=== PATIENT | female | born 1935 | race Asian ===

== ENCOUNTER 2023-03-31 23:46 | Inpatient (IN) | payer MEDICARE, OTHER ==
[~2023-03-31] VITALS: Ht 167.6 cm; Wt 69.1 kg
[2023-04-01] VITALS (8 sets, daily range): BP systolic 131–186; BP diastolic 60–75; TEMP 97.6–98.4; O2SAT 94–100
[2023-04-01] MEDS ORDERED: methylPREDNISolone SOD SUCC 125 MG/2ML VIAL IV ONE
[2023-04-01] MEDS ORDERED: ALBUTEROL FS 2.5 MG/0.5 ML VIAL.NEB NEB ONE
[2023-04-01] MEDS ORDERED: ALBUTEROL FS 2.5 MG/0.5 ML VIAL.NEB ONE (00:11)
[2023-04-01] MEDS ORDERED: methylPREDNISolone SOD SUCC 125 MG/2ML VIAL ONE (00:25)
[2023-04-01 00:34] LABS: BASOPHILS % (AUTO) 0.5 % (0.0-2.0); EOSINOPHILS # (AUTO) 0.2 K/uL (0.0-0.7); EOSINOPHILS % (AUTO) 2.4 % (0.0-6.0); HEMATOCRIT 34 % (33-45); LYMPHOCYTES # (AUTO) 1.5 K/uL (0.8-4.8); LYMPHOCYTES % (AUTO) 23.9 % (20.0-44.0); MEAN CORPUSCULAR HEMOGLOBIN 30 PG (26.0-33.0); MEAN CORPUSCULAR HGB CONC 33 g/dl (31.0-36.0); MEAN CORPUSCULAR VOLUME 92 fL (82-100); MONOCYTES # (AUTO) 0.7 K/uL (0.1-1.30); NEUTROPHILS % (AUTO) 62.2 % (43.0-81.0); PLATELET COUNT (AUTO) 220 K/uL (150-450); RED BLOOD CELL COUNT(AUTO) 3.66 MIL/uL (4.0-5.2); RED CELL DISTRIBUTION WIDTH 14.8 % (11.5-15.0); WHITE BLOOD COUNT (AUTO) 6.5 K/uL (4.3-11.0)
[2023-04-01 00:45] LABS: CALCIUM, SERUM 8.7 mg/dL (8.5-10.1); CARBON DIOXIDE 25 mmol/L (21-32); CHLORIDE 105 mmol/L (98-107); CREATININE 1.3 mg/dL (0.6-1.3); GLUCOSE 133 mg/dL (74-106); POTASSIUM 3.9 mmol/L (3.5-5.1); SODIUM SERUM 137 mmol/L (136-145); UREA NITROGEN, BLOOD 21 mg/dL (7-18)
[2023-04-01 00:47] LABS: APPEARANCE,URINE CLEAR (CLEAR); BILIRUBIN,URINE NEGATIVE (NEGATIVE); BLOOD, URINE TRACE-INTA Ery/uL (NEGATIVE); COLOR,URINE YELLOW (YELLOW); KETONES,URINE NEGATIVE (NEGATIVE); LEUKOCYTE ESTERASE ,URINE NEGATIVE (NEGATIVE); NITRITE, URINE NEGATIVE (NEGATIVE); PH,URINE 5.5 (5.0-8.0); PROTEIN,URINE 2+ mg/dl (NEGATIVE); UGLUCOSE NEGATIVE (NEGATIVE); UROBILINOGEN,URINE 0.2 EU/dL (0.2)
[2023-04-01 00:53] LABS: LACTIC ACID 1.8 mmol/L (0.4-2.0)
[2023-04-01 00:59] LABS: ALANINE AMINOTRANSFERASE 43 U/L (12-78); ALBUMIN 3.3 g/dL (3.4-5.0); ALKALINE PHOSPHATASE 84 U/L (46-116); ASPARTATE AMINOTRANSFERASE 33 U/L (15-37); BILIRUBIN,DIRECT 0.1 mg/dL (0.0-0.2); BILIRUBIN,TOTAL 0.4 mg/dL (0.2-1.0); NT-PRO BNP 3523 pg/mL (0-125); TOTAL PROTEIN, SERUM 6.6 g/dL (6.4-8.2)
[2023-04-01 01:05] LABS: ADD URINE CULTURE NO; BACTERIA,URINE Few /HPF (None Seen); MUCUS,URINE Moderate /LPF (None Seen); RBC,URINE 0-2 /HPF (0-2); WBC,URINE 0-2 /HPF (0-3)
[2023-04-01 01:11] LABS: INR 1.01 (0.91-1.10); PARTIAL THROMBOPLASTIN TIME 27.8 SEC (24.3-34.3); PROTHROMBIN TIME 10.7 SECS (9.2-11.1)
[2023-04-01] MEDS ORDERED: FUROSEMIDE 40 MG/4 ML VIAL ONE (01:44)
[2023-04-01] MEDS ORDERED: FUROSEMIDE 40 MG/4 ML VIAL IV ONE (02:00)
[2023-04-01] MEDS ORDERED: ENOXAPARIN SODIUM 40 MG/0.4 ML DISP.SYRIN SQ SCH (03:30)
[2023-04-01] MEDS ORDERED: MAGNESIUM HYDROXIDE 30 ML UDC PO PRN (03:30)
[2023-04-01] MEDS ORDERED: Z GUARD REMEDY 4 OZ OINT TP PRN (03:30)
[2023-04-01] MEDS ORDERED: LIDOCAINE 5% (PATCH) 1 EA PATCH TP ONE ×2 (04:00→04:17)
[2023-04-01] MEDS: LIDOCAINE 5% (PATCH) 1 EA PATCH TP SCH (05:33)
[2023-04-01] MEDS: ACETAMINOPHEN 325 MG TABLET PO PRN (07:30)
[2023-04-01] MEDS: PANTOPRAZOLE 40 MG TABLET.DR PO SCH (07:30)
[2023-04-01] MEDS ORDERED: NEBI5TAB8 PO (09:00)
[2023-04-01] MEDS ORDERED: [UNRECOGNIZED DRUG - OTHER] PO (09:00)
[2023-04-01] MEDS ORDERED: FELO5TAB45 PO (09:00)
[2023-04-01] MEDS ORDERED: LEVO5TAB29 PO (09:00)
[2023-04-01] MEDS ORDERED: FLUT1BLS15 IH (09:00)
[2023-04-01] MEDS ORDERED: CLON0.1T PO (09:00)
[2023-04-01] MEDS ORDERED: ATOR40TA PO (09:00)
[2023-04-01] MEDS ORDERED: EZET10TA16 PO (09:00)
[2023-04-01] MEDS ORDERED: RENALOG PO (09:00)
[2023-04-01] MEDS ORDERED: ASPI-1420 PO (09:00)
[2023-04-01] MEDS ORDERED: [UNRECOGNIZED DRUG - OTHER] PO (09:00)
[2023-04-01] MEDS ORDERED: [UNRECOGNIZED DRUG - OTHER] PO (09:00)
[2023-04-01] MEDS ORDERED: VALS80TA2 PO (09:00)
[2023-04-01] MEDS ORDERED: DONE10TA44 PO (09:00)
[2023-04-01] MEDS ORDERED: MONT10TA22 PO (09:00)
[2023-04-01] MEDS ORDERED: ASPIRIN EC 81 MG TABLET.DR PO SCH (10:00)
[2023-04-01] MEDS: FUROSEMIDE 40 MG/4 ML VIAL IV SCH ×3 (10:44→17:19)
[2023-04-01] MEDS: POTASSIUM CHLORIDE 20 MEQ TAB.PRT.SR PO SCH ×3 (10:45→12:51)
[2023-04-01] MEDS: hydrALAZINE HCL 50 MG TABLET PO SCH ×3 (10:47→17:21)
[2023-04-01] MEDS: VALSARTAN 80 MG TABLET PO SCH (10:50)
[2023-04-01] MEDS ORDERED: MORPHINE SULFATE INJ 4 MG/ML DISP.SYRIN IV PRN (11:00)
[2023-04-01] MEDS: NITROGLYCERIN 30 GM TUBE TP SCH ×2 (11:07→22:30)
[2023-04-01] MEDS: HYDROCODONE/APAP 5/325MG TABLET PO PRN ×2 (11:12→15:38)
[2023-04-01 11:21] LABS: THYROID STIMULATING HORMONE 1.269 uIU/mL (0.358-3.74)
[2023-04-01] MEDS ORDERED: MORPHINE SULFATE INJ 2 MG/ML DISP.SYRIN IM PRN (13:00)
[2023-04-01] MEDS: MORPHINE SULFATE INJ 2 MG/ML DISP.SYRIN IVP PRN (13:02)
[2023-04-01] MEDS: EZETIMIBE 10 MG TABLET PO SCH (17:20)
[2023-04-01] MEDS: DONEPEZIL 5 MG TABLET PO SCH (17:21)
[2023-04-01] MEDS: ATORVASTATIN 40 MG TABLET PO SCH (17:22)
[2023-04-01] MEDS: MONTELUKAST SODIUM (10MG) 10 MG TABLET PO SCH (17:22)
[2023-04-01] MEDS: ENOXAPARIN SODIUM 30 MG/0.3 ML DISP.SYRIN SQ SCH (23:18)
[2023-04-02] VITALS (7 sets, daily range): BP systolic 147–171; BP diastolic 51–85; TEMP 97.7–98.2; O2SAT 93–97
[2023-04-02 00:01] LABS: BASOPHILS % (AUTO) 0.2 % (0.0-2.0); EOSINOPHILS % (AUTO) 0.1 % (0.0-6.0); HEMATOCRIT 36 % (33-45); HEMOGLOBIN 11.5 g/dL (11.5-14.8); LYMPHOCYTES # (AUTO) 0.7 K/uL (0.8-4.8); LYMPHOCYTES % (AUTO) 5.1 % (20.0-44.0); MEAN CORPUSCULAR HEMOGLOBIN 30 PG (26.0-33.0); MEAN CORPUSCULAR HGB CONC 33 g/dl (31.0-36.0); MEAN CORPUSCULAR VOLUME 92 fL (82-100); MONOCYTES # (AUTO) 1.3 K/uL (0.1-1.30); MONOCYTES % (AUTO) 9.5 % (2.0-12.0); NEUTROPHILS # (AUTO) 11.3 K/uL (1.8-8.9); NEUTROPHILS % (AUTO) 85.1 % (43.0-81.0); PLATELET COUNT (AUTO) 255 K/uL (150-450); RED BLOOD CELL COUNT(AUTO) 3.86 MIL/uL (4.0-5.2); RED CELL DISTRIBUTION WIDTH 14.8 % (11.5-15.0); WHITE BLOOD COUNT (AUTO) 13.2 K/uL (4.3-11.0)
[2023-04-02 00:02] LABS: CALCIUM, SERUM 8.8 mg/dL (8.5-10.1); CARBON DIOXIDE 26 mmol/L (21-32); CHLORIDE 103 mmol/L (98-107); CREATININE 1.7 mg/dL (0.6-1.3); GLUCOSE 183 mg/dL (74-106); POTASSIUM 4.4 mmol/L (3.5-5.1); SODIUM SERUM 136 mmol/L (136-145); UREA NITROGEN, BLOOD 29 mg/dL (7-18)
[2023-04-02 00:08] LABS: ALANINE AMINOTRANSFERASE 57 U/L (12-78); ALBUMIN 3.7 g/dL (3.4-5.0); ALKALINE PHOSPHATASE 92 U/L (46-116); ASPARTATE AMINOTRANSFERASE 36 U/L (15-37); BILIRUBIN,TOTAL 0.4 mg/dL (0.2-1.0); LIPASE 47 U/L (16-77); TOTAL PROTEIN, SERUM 7.2 g/dL (6.4-8.2)
[2023-04-02] MEDS: MAG HYDROX/AL HYDROX/SIMETH 30 ML UDC PO PRN ×2 (00:18→18:27)
[2023-04-02] MEDS: MORPHINE SULFATE INJ 2 MG/ML DISP.SYRIN IVP PRN (00:18)
[2023-04-02] MEDS ORDERED: MORPHINE SULFATE INJ 2 MG/ML DISP.SYRIN IV ONE (01:00)
[2023-04-02] MEDS: hydrALAZINE HCL IV 20 MG VIAL IV PRN ×2 (03:01→20:10)
[2023-04-02] MEDS: HYDROCODONE/APAP 5/325MG TABLET PO PRN (04:01)
[2023-04-02] MEDS: LIDOCAINE 5% (PATCH) 1 EA PATCH TP SCH (04:53)
[2023-04-02 07:20] LABS: BASOPHILS % (AUTO) 0.1 % (0.0-2.0); HEMATOCRIT 35 % (33-45); HEMOGLOBIN 11.3 g/dL (11.5-14.8); LYMPHOCYTES % (AUTO) 7.7 % (20.0-44.0); MEAN CORPUSCULAR HEMOGLOBIN 30 PG (26.0-33.0); MEAN CORPUSCULAR HGB CONC 33 g/dl (31.0-36.0); MEAN CORPUSCULAR VOLUME 91 fL (82-100); MONOCYTES # (AUTO) 1.5 K/uL (0.1-1.30); MONOCYTES % (AUTO) 11.4 % (2.0-12.0); NEUTROPHILS # (AUTO) 10.6 K/uL (1.8-8.9); NEUTROPHILS % (AUTO) 80.8 % (43.0-81.0); PLATELET COUNT (AUTO) 274 K/uL (150-450); RED BLOOD CELL COUNT(AUTO) 3.79 MIL/uL (4.0-5.2); RED CELL DISTRIBUTION WIDTH 14.9 % (11.5-15.0); WHITE BLOOD COUNT (AUTO) 13.2 K/uL (4.3-11.0)
[2023-04-02 07:52] LABS: CALCIUM, SERUM 8.8 mg/dL (8.5-10.1); CARBON DIOXIDE 26 mmol/L (21-32); CHLORIDE 102 mmol/L (98-107); CREATININE 1.4 mg/dL (0.6-1.3); GLUCOSE 169 mg/dL (74-106); MAGNESIUM 2.5 mg/dL (1.8-2.4); PHOSPHORUS 4.9 mg/dL (2.5-4.9); POTASSIUM 3.6 mmol/L (3.5-5.1); SODIUM SERUM 138 mmol/L (136-145); UREA NITROGEN, BLOOD 29 mg/dL (7-18)
[2023-04-02] MEDS: PANTOPRAZOLE 40 MG TABLET.DR PO SCH (08:42)
[2023-04-02] MEDS: ONDANSETRON HCL/PF 4 MG/2 ML VIAL IVP PRN ×2 (08:42→18:45)
[2023-04-02] MEDS: hydrALAZINE HCL 50 MG TABLET PO SCH ×3 (08:43→17:41)
[2023-04-02] MEDS: VALSARTAN 80 MG TABLET PO SCH (08:43)
[2023-04-02 08:51] LABS: CHOLESTEROL 148 mg/dL (<200); HDL CHOLESTEROL 75 mg/dL (40-60); LDL 58 mg/dL (0-99); TRIGLYCERIDES 96 mg/dL (30-150)
[2023-04-02] MEDS: FLUTICASONE/VILANTEROL 1 EACH BLST.W.DEV IH SCH (09:00)
[2023-04-02] MEDS: ASPIRIN EC 81 MG TABLET.DR PO SCH (09:01)
[2023-04-02] MEDS: NITROGLYCERIN 30 GM TUBE TP SCH ×2 (09:01→21:06)
[2023-04-02] MEDS ORDERED: hydrALAZINE HCL 50 MG TABLET PO SCH (09:30)
[2023-04-02] MEDS ORDERED: ZOLPIDEM TARTRATE 10 MG TABLET PO PRN (10:30)
[2023-04-02] MEDS: POTASSIUM CHLORIDE 20 MEQ TAB.PRT.SR PO SCH ×3 (10:40→17:41)
[2023-04-02] MEDS: FUROSEMIDE 100 MG/10 ML VIAL IV SCH ×3 (10:40→17:40)
[2023-04-02] MEDS: HYDROCODONE/APAP 10/325MG TABLET PO PRN ×2 (12:30→21:08)
[2023-04-02] MEDS: ATORVASTATIN 40 MG TABLET PO SCH (17:40)
[2023-04-02] MEDS: DONEPEZIL 5 MG TABLET PO SCH (17:40)
[2023-04-02] MEDS: EZETIMIBE 10 MG TABLET PO SCH (17:40)
[2023-04-02] MEDS: MONTELUKAST SODIUM (10MG) 10 MG TABLET PO SCH (17:41)
[2023-04-02] MEDS: ENOXAPARIN SODIUM 30 MG/0.3 ML DISP.SYRIN SQ SCH (21:07)
[2023-04-03] VITALS: BP 134/75; TEMP 97.7; O2SAT 99
[2023-04-03] MEDS: LIDOCAINE 5% (PATCH) 1 EA PATCH TP SCH (04:28)
[2023-04-03] MEDS: hydrALAZINE HCL IV 20 MG VIAL IV PRN ×2 (04:29→20:57)
[2023-04-03 06:35] LABS: BASOPHILS % (AUTO) 0.1 % (0.0-2.0); EOSINOPHILS % (AUTO) 0.1 % (0.0-6.0); HEMATOCRIT 38 % (33-45); LYMPHOCYTES # (AUTO) 1.6 K/uL (0.8-4.8); LYMPHOCYTES % (AUTO) 14.3 % (20.0-44.0); MEAN CORPUSCULAR HEMOGLOBIN 29 PG (26.0-33.0); MEAN CORPUSCULAR HGB CONC 32 g/dl (31.0-36.0); MEAN CORPUSCULAR VOLUME 92 fL (82-100); MONOCYTES # (AUTO) 1.1 K/uL (0.1-1.30); MONOCYTES % (AUTO) 9.5 % (2.0-12.0); NEUTROPHILS # (AUTO) 8.7 K/uL (1.8-8.9); PLATELET COUNT (AUTO) 280 K/uL (150-450); RED BLOOD CELL COUNT(AUTO) 4.12 MIL/uL (4.0-5.2); RED CELL DISTRIBUTION WIDTH 15.2 % (11.5-15.0); WHITE BLOOD COUNT (AUTO) 11.4 K/uL (4.3-11.0)
[2023-04-03 07:03] LABS: ALANINE AMINOTRANSFERASE 47 U/L (12-78); ALBUMIN 3.8 g/dL (3.4-5.0); ALKALINE PHOSPHATASE 82 U/L (46-116); ASPARTATE AMINOTRANSFERASE 31 U/L (15-37); BILIRUBIN,TOTAL 0.5 mg/dL (0.2-1.0); CALCIUM, SERUM 8.9 mg/dL (8.5-10.1); CARBON DIOXIDE 31 mmol/L (21-32); CHLORIDE 101 mmol/L (98-107); CREATININE 1.8 mg/dL (0.6-1.3); GLUCOSE 114 mg/dL (74-106); MAGNESIUM 2.8 mg/dL (1.8-2.4); PHOSPHORUS 5.2 mg/dL (2.5-4.9); POTASSIUM 4.3 mmol/L (3.5-5.1); SODIUM SERUM 137 mmol/L (136-145); TOTAL PROTEIN, SERUM 7.2 g/dL (6.4-8.2); UREA NITROGEN, BLOOD 31 mg/dL (7-18)
[2023-04-03 07:30] VITALS: BP 146/58; TEMP 99.1; O2SAT 90
[2023-04-03] MEDS: PANTOPRAZOLE 40 MG TABLET.DR PO SCH ×2 (07:30→10:29)
[2023-04-03] MEDS: FLUTICASONE/VILANTEROL 1 EACH BLST.W.DEV IH SCH (09:54)
[2023-04-03] MEDS: NITROGLYCERIN 30 GM TUBE TP SCH ×2 (09:55→20:56)
[2023-04-03] MEDS: VALSARTAN 80 MG TABLET PO SCH (09:56)
[2023-04-03] MEDS: ASPIRIN EC 81 MG TABLET.DR PO SCH (09:57)
[2023-04-03] MEDS: hydrALAZINE HCL 50 MG TABLET PO SCH ×3 (10:27→17:23)
[2023-04-03 12:00] VITALS: BP 131/52; TEMP 98.1; O2SAT 93
[2023-04-03] MEDS: SOD FERRIC GLUC 125 MG in IV NS 0.9% 100 ML IV SCH (14:59)
[2023-04-03 16:00] VITALS: BP 154/54; TEMP 99; O2SAT 90
[2023-04-03] MEDS: ATORVASTATIN 40 MG TABLET PO SCH (17:40)
[2023-04-03] MEDS: MONTELUKAST SODIUM (10MG) 10 MG TABLET PO SCH (17:40)
[2023-04-03] MEDS: EZETIMIBE 10 MG TABLET PO SCH (17:40)
[2023-04-03] MEDS: ACETAMINOPHEN 325 MG TABLET PO PRN (17:41)
[2023-04-03] MEDS: ONDANSETRON HCL/PF 4 MG/2 ML VIAL IVP PRN (17:41)
[2023-04-03] MEDS: DONEPEZIL 5 MG TABLET PO SCH (17:45)
[2023-04-03 20:00] VITALS: BP 175/63; TEMP 97.9; O2SAT 95
[2023-04-03] MEDS: ENOXAPARIN SODIUM 30 MG/0.3 ML DISP.SYRIN SQ SCH (21:30)
[2023-04-04] MEDS: LIDOCAINE 5% (PATCH) 1 EA PATCH TP SCH (05:02)
[2023-04-04 06:20] LABS: BASOPHILS # (AUTO) 0.1 K/uL (0.0-0.2); BASOPHILS % (AUTO) 0.6 % (0.0-2.0); EOSINOPHILS # (AUTO) 0.1 K/uL (0.0-0.7); EOSINOPHILS % (AUTO) 0.7 % (0.0-6.0); HEMATOCRIT 38 % (33-45); HEMOGLOBIN 12.4 g/dL (11.5-14.8); LYMPHOCYTES # (AUTO) 1.3 K/uL (0.8-4.8); LYMPHOCYTES % (AUTO) 13.8 % (20.0-44.0); MEAN CORPUSCULAR HEMOGLOBIN 30 PG (26.0-33.0); MEAN CORPUSCULAR HGB CONC 33 g/dl (31.0-36.0); MEAN CORPUSCULAR VOLUME 92 fL (82-100); MONOCYTES # (AUTO) 1.4 K/uL (0.1-1.30); MONOCYTES % (AUTO) 14.5 % (2.0-12.0); NEUTROPHILS # (AUTO) 6.6 K/uL (1.8-8.9); NEUTROPHILS % (AUTO) 70.4 % (43.0-81.0); PLATELET COUNT (AUTO) 256 K/uL (150-450); WHITE BLOOD COUNT (AUTO) 9.5 K/uL (4.3-11.0)
[2023-04-04 07:08] LABS: CALCIUM, SERUM 8.6 mg/dL (8.5-10.1); CARBON DIOXIDE 28 mmol/L (21-32); CHLORIDE 100 mmol/L (98-107); CREATININE 1.9 mg/dL (0.6-1.3); GLUCOSE 115 mg/dL (74-106); MAGNESIUM 2.9 mg/dL (1.8-2.4); PHOSPHORUS 4.6 mg/dL (2.5-4.9); SODIUM SERUM 137 mmol/L (136-145); UREA NITROGEN, BLOOD 35 mg/dL (7-18)
[2023-04-04] MEDS: PANTOPRAZOLE 40 MG TABLET.DR PO SCH (08:04)
[2023-04-04 08:23] VITALS: BP 159/60; TEMP 98.3; O2SAT 95
[2023-04-04] MEDS ORDERED: VALSARTAN 80 MG TABLET PO SCH (09:00)
[2023-04-04] MEDS: FLUTICASONE/VILANTEROL 1 EACH BLST.W.DEV IH SCH (09:29)
[2023-04-04] MEDS: ESCITALOPRAM OXALATE (10 MG) 10 MG TABLET PO SCH (09:30)
[2023-04-04] MEDS: NITROGLYCERIN 30 GM TUBE TP SCH ×2 (09:30→21:03)
[2023-04-04] MEDS: ASPIRIN EC 81 MG TABLET.DR PO SCH (09:31)
[2023-04-04] MEDS: hydrALAZINE HCL 50 MG TABLET PO SCH ×3 (09:31→18:02)
[2023-04-04] MEDS: NIFEdipine XL (30MG) 30 MG TAB PO SCH (11:17)
[2023-04-04] MEDS: ONDANSETRON HCL/PF 4 MG/2 ML VIAL IVP PRN (11:36)
[2023-04-04] MEDS: MORPHINE SULFATE INJ 2 MG/ML DISP.SYRIN IVP PRN (11:37)
[2023-04-04] MEDS: MAG HYDROX/AL HYDROX/SIMETH 30 ML UDC PO PRN (13:08)
[2023-04-04] MEDS ORDERED: HYDROCODONE/APAP 10/325MG TABLET PO PRN (16:00)
[2023-04-04 16:07] VITALS: BP 147/47; TEMP 98.5; O2SAT 94
[2023-04-04] MEDS: SOD FERRIC GLUC 125 MG in IV NS 0.9% 100 ML IV SCH (16:34)
[2023-04-04 17:44] LABS: APPEARANCE,URINE CLEAR (CLEAR); BILIRUBIN,URINE 1+ (NEGATIVE); BLOOD, URINE NEGATIVE Ery/uL (NEGATIVE); COLOR,URINE YELLOW (YELLOW); KETONES,URINE NEGATIVE (NEGATIVE); LEUKOCYTE ESTERASE ,URINE 1+ (NEGATIVE); NITRITE, URINE NEGATIVE (NEGATIVE); PROTEIN,URINE TRACE mg/dl (NEGATIVE); UGLUCOSE NEGATIVE (NEGATIVE); UROBILINOGEN,URINE 0.2 EU/dL (0.2)
[2023-04-04 17:55] LABS: ADD URINE CULTURE YES; BACTERIA,URINE 1+ /HPF (None Seen); CREATININE, URINE 220.8 MG/DL (30.0-125.0); RBC,URINE 0-2 /HPF (0-2); SQUAMOUS EPITHELIAL CELL,UR Few /HPF (None Seen); URINE TOTAL PROTEIN 25.9 mg/dL (0-11.9); WBC,URINE 81-100 /HPF (0-3)
[2023-04-04] MEDS: DONEPEZIL 5 MG TABLET PO SCH (18:02)
[2023-04-04] MEDS: MONTELUKAST SODIUM (10MG) 10 MG TABLET PO SCH (18:02)
[2023-04-04] MEDS: ATORVASTATIN 40 MG TABLET PO SCH (18:02)
[2023-04-04] MEDS: EZETIMIBE 10 MG TABLET PO SCH (18:02)
[2023-04-04 20:29] VITALS: BP 163/62; TEMP 98.4; O2SAT 95
[2023-04-04] MEDS: ENOXAPARIN SODIUM 30 MG/0.3 ML DISP.SYRIN SQ SCH (21:10)
[2023-04-05] MEDS: LIDOCAINE 5% (PATCH) 1 EA PATCH TP SCH (04:37)
[2023-04-05 06:16] LABS: BASOPHILS % (AUTO) 0.3 % (0.0-2.0); EOSINOPHILS # (AUTO) 0.2 K/uL (0.0-0.7); HEMATOCRIT 38 % (33-45); HEMOGLOBIN 12.3 g/dL (11.5-14.8); LYMPHOCYTES # (AUTO) 1.3 K/uL (0.8-4.8); LYMPHOCYTES % (AUTO) 13.8 % (20.0-44.0); MEAN CORPUSCULAR HEMOGLOBIN 30 PG (26.0-33.0); MEAN CORPUSCULAR HGB CONC 33 g/dl (31.0-36.0); MEAN CORPUSCULAR VOLUME 92 fL (82-100); MONOCYTES # (AUTO) 1.3 K/uL (0.1-1.30); MONOCYTES % (AUTO) 14.3 % (2.0-12.0); NEUTROPHILS # (AUTO) 6.6 K/uL (1.8-8.9); NEUTROPHILS % (AUTO) 69.6 % (43.0-81.0); PLATELET COUNT (AUTO) 240 K/uL (150-450); RED BLOOD CELL COUNT(AUTO) 4.11 MIL/uL (4.0-5.2); RED CELL DISTRIBUTION WIDTH 14.6 % (11.5-15.0); WHITE BLOOD COUNT (AUTO) 9.4 K/uL (4.3-11.0)
[2023-04-05 06:24] LABS: ALANINE AMINOTRANSFERASE 34 U/L (12-78); ALBUMIN 3.2 g/dL (3.4-5.0); ALKALINE PHOSPHATASE 72 U/L (46-116); ASPARTATE AMINOTRANSFERASE 22 U/L (15-37); BILIRUBIN,TOTAL 0.7 mg/dL (0.2-1.0); CALCIUM, SERUM 8.5 mg/dL (8.5-10.1); CARBON DIOXIDE 30 mmol/L (21-32); CHLORIDE 102 mmol/L (98-107); CREATININE 1.6 mg/dL (0.6-1.3); GLUCOSE 100 mg/dL (74-106); MAGNESIUM 3.2 mg/dL (1.8-2.4); PHOSPHORUS 4.1 mg/dL (2.5-4.9); POTASSIUM 4.1 mmol/L (3.5-5.1); SODIUM SERUM 136 mmol/L (136-145); TOTAL PROTEIN, SERUM 6.4 g/dL (6.4-8.2); UREA NITROGEN, BLOOD 32 mg/dL (7-18)
[2023-04-05] MEDS: PANTOPRAZOLE 40 MG TABLET.DR PO SCH (07:30)
[2023-04-05 08:33] VITALS: BP 160/54; TEMP 98.4; O2SAT 94
[2023-04-05] MEDS: FLUTICASONE/VILANTEROL 1 EACH BLST.W.DEV IH SCH (08:57)
[2023-04-05] MEDS: NITROGLYCERIN 30 GM TUBE TP SCH ×2 (08:58→21:41)
[2023-04-05] MEDS: hydrALAZINE HCL 50 MG TABLET PO SCH ×3 (09:00→16:43)
[2023-04-05] MEDS: NIFEdipine XL (30MG) 30 MG TAB PO SCH (09:00)
[2023-04-05] MEDS: ASPIRIN EC 81 MG TABLET.DR PO SCH (09:00)
[2023-04-05] MEDS: ESCITALOPRAM OXALATE (10 MG) 10 MG TABLET PO SCH (09:00)
[2023-04-05] MEDS: SOD FERRIC GLUC 125 MG in IV NS 0.9% 100 ML IV SCH (14:14)
[2023-04-05 16:30] VITALS: BP 139/49; TEMP 98.2; O2SAT 95
[2023-04-05] MEDS: ATORVASTATIN 40 MG TABLET PO SCH (18:03)
[2023-04-05] MEDS: EZETIMIBE 10 MG TABLET PO SCH (18:03)
[2023-04-05] MEDS: DONEPEZIL 5 MG TABLET PO SCH (18:03)
[2023-04-05] MEDS: MONTELUKAST SODIUM (10MG) 10 MG TABLET PO SCH (18:04)
[2023-04-05 19:30] VITALS: BP 108/58; TEMP 98.8; O2SAT 95
[2023-04-05] MEDS: ENOXAPARIN SODIUM 30 MG/0.3 ML DISP.SYRIN SQ SCH (21:47)
[2023-04-06] MEDS: LIDOCAINE 5% (PATCH) 1 EA PATCH TP SCH (04:25)
[2023-04-06 06:36] LABS: BASOPHILS % (AUTO) 0.3 % (0.0-2.0); EOSINOPHILS # (AUTO) 0.3 K/uL (0.0-0.7); EOSINOPHILS % (AUTO) 3.1 % (0.0-6.0); HEMATOCRIT 37 % (33-45); HEMOGLOBIN 12.4 g/dL (11.5-14.8); LYMPHOCYTES # (AUTO) 1.3 K/uL (0.8-4.8); LYMPHOCYTES % (AUTO) 13.4 % (20.0-44.0); MEAN CORPUSCULAR HEMOGLOBIN 31 PG (26.0-33.0); MEAN CORPUSCULAR HGB CONC 33 g/dl (31.0-36.0); MEAN CORPUSCULAR VOLUME 91 fL (82-100); MONOCYTES # (AUTO) 1.4 K/uL (0.1-1.30); MONOCYTES % (AUTO) 14.4 % (2.0-12.0); NEUTROPHILS # (AUTO) 6.5 K/uL (1.8-8.9); NEUTROPHILS % (AUTO) 68.8 % (43.0-81.0); PLATELET COUNT (AUTO) 243 K/uL (150-450); RED BLOOD CELL COUNT(AUTO) 4.07 MIL/uL (4.0-5.2); RED CELL DISTRIBUTION WIDTH 14.6 % (11.5-15.0); WHITE BLOOD COUNT (AUTO) 9.5 K/uL (4.3-11.0)
[2023-04-06 07:07] LABS: CALCIUM, SERUM 8.5 mg/dL (8.5-10.1); CARBON DIOXIDE 28 mmol/L (21-32); CHLORIDE 102 mmol/L (98-107); CREATININE 1.3 mg/dL (0.6-1.3); GLUCOSE 96 mg/dL (74-106); MAGNESIUM 3.2 mg/dL (1.8-2.4); PHOSPHORUS 3.4 mg/dL (2.5-4.9); SODIUM SERUM 136 mmol/L (136-145); UREA NITROGEN, BLOOD 24 mg/dL (7-18)
[2023-04-06 08:00] VITALS: BP 158/56; TEMP 98.6; O2SAT 94
[2023-04-06] MEDS: PANTOPRAZOLE 40 MG TABLET.DR PO SCH (08:31)
[2023-04-06] MEDS: ASPIRIN EC 81 MG TABLET.DR PO SCH (08:31)
[2023-04-06] MEDS: ESCITALOPRAM OXALATE (10 MG) 10 MG TABLET PO SCH (08:32)
[2023-04-06] MEDS: hydrALAZINE HCL 50 MG TABLET PO SCH ×3 (08:32→16:11)
[2023-04-06] MEDS: NIFEdipine XL (30MG) 30 MG TAB PO SCH (08:33)
[2023-04-06] MEDS: FLUTICASONE/VILANTEROL 1 EACH BLST.W.DEV IH SCH (08:34)
[2023-04-06] MEDS: NITROGLYCERIN 30 GM TUBE TP SCH ×2 (08:35→22:56)
[2023-04-06] MEDS: ACETAMINOPHEN 325 MG TABLET PO PRN (10:11)
[2023-04-06] MEDS: ONDANSETRON HCL/PF 4 MG/2 ML VIAL IVP PRN (10:18)
[2023-04-06] MEDS ORDERED: ZOLPIDEM TARTRATE 5 MG TABLET PO PRN (13:00)
[2023-04-06] MEDS: SOD FERRIC GLUC 125 MG in IV NS 0.9% 100 ML IV SCH (14:27)
[2023-04-06 16:02] VITALS: BP 136/51; TEMP 98.6; O2SAT 94
[2023-04-06] MEDS: HYDROCODONE/APAP 10/325MG TABLET PO PRN (16:20)
[2023-04-06] MEDS: MONTELUKAST SODIUM (10MG) 10 MG TABLET PO SCH (17:31)
[2023-04-06] MEDS: ATORVASTATIN 40 MG TABLET PO SCH (17:31)
[2023-04-06] MEDS: EZETIMIBE 10 MG TABLET PO SCH (17:31)
[2023-04-06] MEDS: DONEPEZIL 5 MG TABLET PO SCH (17:31)
[2023-04-06 20:00] VITALS: BP 122/64; TEMP 97.9; O2SAT 96
[2023-04-06] MEDS: ENOXAPARIN SODIUM 30 MG/0.3 ML DISP.SYRIN SQ SCH (22:57)
[2023-04-07] MEDS: LIDOCAINE 5% (PATCH) 1 EA PATCH TP SCH (04:47)
[2023-04-07 06:54] LABS: CALCIUM, SERUM 8.5 mg/dL (8.5-10.1); CREATININE 1.3 mg/dL (0.6-1.3); PHOSPHORUS 4.1 mg/dL (2.5-4.9); POTASSIUM 4.7 mmol/L (3.5-5.1)
[2023-04-07 07:03] LABS: BASOPHILS % (AUTO) 0.1 % (0.0-2.0); EOSINOPHILS % (AUTO) 0.2 % (0.0-6.0); HEMATOCRIT 40 % (33-45); HEMOGLOBIN 12.4 g/dL (11.5-14.8); LYMPHOCYTES # (AUTO) 0.7 K/uL (0.8-4.8); LYMPHOCYTES % (AUTO) 6.8 % (20.0-44.0); MEAN CORPUSCULAR HEMOGLOBIN 30 PG (26.0-33.0); MEAN CORPUSCULAR HGB CONC 31 g/dl (31.0-36.0); MEAN CORPUSCULAR VOLUME 96 fL (82-100); MONOCYTES # (AUTO) 0.6 K/uL (0.1-1.30); MONOCYTES % (AUTO) 6.1 % (2.0-12.0); NEUTROPHILS # (AUTO) 8.6 K/uL (1.8-8.9); NEUTROPHILS % (AUTO) 86.8 % (43.0-81.0); PLATELET COUNT (AUTO) 215 K/uL (150-450); RED BLOOD CELL COUNT(AUTO) 4.15 MIL/uL (4.0-5.2); RED CELL DISTRIBUTION WIDTH 15.6 % (11.5-15.0); WHITE BLOOD COUNT (AUTO) 9.9 K/uL (4.3-11.0)
[2023-04-07 07:30] VITALS: BP 140/53; TEMP 98.2; O2SAT 94
[2023-04-07] MEDS: ESCITALOPRAM OXALATE (10 MG) 10 MG TABLET PO SCH (08:31)
[2023-04-07] MEDS: ASPIRIN EC 81 MG TABLET.DR PO SCH (08:31)
[2023-04-07] MEDS: PANTOPRAZOLE 40 MG TABLET.DR PO SCH (08:32)
[2023-04-07] MEDS: hydrALAZINE HCL 50 MG TABLET PO SCH ×3 (08:33→16:06)
[2023-04-07] MEDS: ENSURE ENLIVE 237 ML LIQUID (VANILLA) PO SCH (08:33)
[2023-04-07] MEDS: NIFEdipine XL (30MG) 30 MG TAB PO SCH (08:34)
[2023-04-07] MEDS: NITROGLYCERIN 30 GM TUBE TP SCH ×2 (08:35→20:48)
[2023-04-07] MEDS: FLUTICASONE/VILANTEROL 1 EACH BLST.W.DEV IH SCH (09:05)
[2023-04-07] MEDS: SOD FERRIC GLUC 125 MG in IV NS 0.9% 100 ML IV SCH (15:12)
[2023-04-07 16:00] VITALS: BP 130/51; TEMP 98.2; O2SAT 93
[2023-04-07] MEDS: EZETIMIBE 10 MG TABLET PO SCH (17:40)
[2023-04-07] MEDS: ATORVASTATIN 40 MG TABLET PO SCH (17:40)
[2023-04-07] MEDS: DONEPEZIL 5 MG TABLET PO SCH (17:40)
[2023-04-07] MEDS: MONTELUKAST SODIUM (10MG) 10 MG TABLET PO SCH (17:40)
[2023-04-07] MEDS: ACETAMINOPHEN 325 MG TABLET PO PRN (18:33)
[2023-04-07 20:00] VITALS: BP 128/41; TEMP 98.1; O2SAT 95
[2023-04-07 20:44] VITALS: BP 128/41; TEMP 98.1; O2SAT 95
[2023-04-07] MEDS: ENOXAPARIN SODIUM 30 MG/0.3 ML DISP.SYRIN SQ SCH (22:17)
[2023-04-08] MEDS: LIDOCAINE 5% (PATCH) 1 EA PATCH TP SCH (04:15)
[2023-04-08 07:33] LABS: BASOPHILS % (AUTO) 0.3 % (0.0-2.0); EOSINOPHILS # (AUTO) 0.4 K/uL (0.0-0.7); EOSINOPHILS % (AUTO) 3.6 % (0.0-6.0); HEMATOCRIT 36 % (33-45); HEMOGLOBIN 11.8 g/dL (11.5-14.8); LYMPHOCYTES # (AUTO) 1.2 K/uL (0.8-4.8); LYMPHOCYTES % (AUTO) 11.7 % (20.0-44.0); MEAN CORPUSCULAR HEMOGLOBIN 30 PG (26.0-33.0); MEAN CORPUSCULAR HGB CONC 33 g/dl (31.0-36.0); MEAN CORPUSCULAR VOLUME 92 fL (82-100); MONOCYTES # (AUTO) 1.3 K/uL (0.1-1.30); MONOCYTES % (AUTO) 12.1 % (2.0-12.0); NEUTROPHILS # (AUTO) 7.7 K/uL (1.8-8.9); NEUTROPHILS % (AUTO) 72.3 % (43.0-81.0); PLATELET COUNT (AUTO) 224 K/uL (150-450); RED CELL DISTRIBUTION WIDTH 14.7 % (11.5-15.0); WHITE BLOOD COUNT (AUTO) 10.7 K/uL (4.3-11.0)
[2023-04-08 08:00] VITALS: BP 146/50; TEMP 98.4; O2SAT 96
[2023-04-08 08:19] LABS: CALCIUM, SERUM 8.3 mg/dL (8.5-10.1); CREATININE 1.3 mg/dL (0.6-1.3); MAGNESIUM 2.7 mg/dL (1.8-2.4); POTASSIUM 4.1 mmol/L (3.5-5.1)
[2023-04-08] MEDS: FLUTICASONE/VILANTEROL 1 EACH BLST.W.DEV IH SCH (08:59)
[2023-04-08] MEDS: ASPIRIN EC 81 MG TABLET.DR PO SCH (08:59)
[2023-04-08] MEDS: hydrALAZINE HCL 50 MG TABLET PO SCH ×3 (08:59→17:55)
[2023-04-08] MEDS: PANTOPRAZOLE 40 MG TABLET.DR PO SCH (08:59)
[2023-04-08] MEDS: NITROGLYCERIN 30 GM TUBE TP SCH (09:00)
[2023-04-08] MEDS: ESCITALOPRAM OXALATE (10 MG) 10 MG TABLET PO SCH (09:00)
[2023-04-08] MEDS: ENSURE ENLIVE 237 ML LIQUID (VANILLA) PO SCH (09:01)
[2023-04-08] MEDS: NIFEdipine XL (30MG) 30 MG TAB PO SCH (10:22)
[2023-04-08 16:00] VITALS: BP 154/64; TEMP 98.6; O2SAT 96
[2023-04-08] MEDS: EZETIMIBE 10 MG TABLET PO SCH (17:55)
[2023-04-08] MEDS: MONTELUKAST SODIUM (10MG) 10 MG TABLET PO SCH (17:55)
[2023-04-08] MEDS: ATORVASTATIN 40 MG TABLET PO SCH (17:55)
[2023-04-08] MEDS: DONEPEZIL 5 MG TABLET PO SCH (17:55)
[2023-04-08 20:00] VITALS: BP 156/45; TEMP 98.2; O2SAT 95
[2023-04-09] MEDS: NITROGLYCERIN 30 GM TUBE TP SCH ×2 (00:52→09:26)
[2023-04-09] MEDS: ENOXAPARIN SODIUM 30 MG/0.3 ML DISP.SYRIN SQ SCH (00:55)
[2023-04-09] MEDS: LIDOCAINE 5% (PATCH) 1 EA PATCH TP SCH (04:30)
[2023-04-09 06:31] LABS: BASOPHILS # (AUTO) 0.1 K/uL (0.0-0.2); BASOPHILS % (AUTO) 0.5 % (0.0-2.0); EOSINOPHILS # (AUTO) 0.4 K/uL (0.0-0.7); HEMATOCRIT 36 % (33-45); HEMOGLOBIN 12.1 g/dL (11.5-14.8); LYMPHOCYTES # (AUTO) 1.5 K/uL (0.8-4.8); LYMPHOCYTES % (AUTO) 14.6 % (20.0-44.0); MEAN CORPUSCULAR HEMOGLOBIN 30 PG (26.0-33.0); MEAN CORPUSCULAR HGB CONC 33 g/dl (31.0-36.0); MEAN CORPUSCULAR VOLUME 91 fL (82-100); MONOCYTES # (AUTO) 1.5 K/uL (0.1-1.30); MONOCYTES % (AUTO) 13.9 % (2.0-12.0); PLATELET COUNT (AUTO) 230 K/uL (150-450); RED BLOOD CELL COUNT(AUTO) 3.99 MIL/uL (4.0-5.2); RED CELL DISTRIBUTION WIDTH 14.6 % (11.5-15.0); WHITE BLOOD COUNT (AUTO) 10.5 K/uL (4.3-11.0)
[2023-04-09 06:51] LABS: CALCIUM, SERUM 8.3 mg/dL (8.5-10.1); MAGNESIUM 2.4 mg/dL (1.8-2.4); PHOSPHORUS 2.6 mg/dL (2.5-4.9); POTASSIUM 3.8 mmol/L (3.5-5.1)
[2023-04-09 07:25] LABS: CREATININE 1.2 mg/dL (0.6-1.3)
[2023-04-09] MEDS: PANTOPRAZOLE 40 MG TABLET.DR PO SCH (07:58)
[2023-04-09 08:00] VITALS: BP 153/69; TEMP 98.8; O2SAT 96
[2023-04-09] MEDS: hydrALAZINE HCL 50 MG TABLET PO SCH (09:23)
[2023-04-09] MEDS: ASPIRIN EC 81 MG TABLET.DR PO SCH (09:23)
[2023-04-09] MEDS: ESCITALOPRAM OXALATE (10 MG) 10 MG TABLET PO SCH (09:24)
[2023-04-09] MEDS: FLUTICASONE/VILANTEROL 1 EACH BLST.W.DEV IH SCH (09:27)
[2023-04-09 09:31] VITALS: BP 153/69
[2023-04-09] MEDS: NIFEdipine XL (30MG) 30 MG TAB PO SCH (09:31)
[2023-04-09] MEDS: ENSURE ENLIVE 237 ML LIQUID (VANILLA) PO SCH (09:45)
[2023-04-09] MEDS ORDERED: VALS160T2 PO (10:44)
[2023-04-09] MEDS ORDERED: NIFE-34 PO (10:44)
== END 2023-04-09 12:20 | disposition home or self-care (01) | DRG 291 ==
LOC: ER 23:49 → TELE 04-01 03:56 → MED 04-03 12:50
PROVIDERS: ADMIT Nurse Practitioner Acute Care; ATTEND Student in an Organized Health Care Education/Training Program
DX: I13.0 Hypertensive heart and chronic kidney disease with heart failure and stage 1 through stage 4 chronic kidney disease, or unspecified chronic kidney disease (principal); I50.33 Acute on chronic diastolic (congestive) heart failure; N17.0 Acute kidney failure with tubular necrosis; I82.612 Acute embolism and thrombosis of superficial veins of left upper extremity; N39.0 Urinary tract infection, site not specified; J90 Pleural effusion, not elsewhere classified; J45.909 Unspecified asthma, uncomplicated; I48.91 Unspecified atrial fibrillation; E78.5 Hyperlipidemia, unspecified; E86.0 Dehydration; Z20.822 Contact with and (suspected) exposure to COVID-19; Z95.1 Presence of aortocoronary bypass graft; F32.A Depression, unspecified; G47.00 Insomnia, unspecified; I25.10 Atherosclerotic heart disease of native coronary artery without angina pectoris; K52.9 Noninfective gastroenteritis and colitis, unspecified; N27.0 Small kidney, unilateral; R31.0 Gross hematuria; N18.9 Chronic kidney disease, unspecified
CPT/HCPCS: 36415; 71045-TC; 74018; 76705-TC; 76770-TC; 80048-TC; 80053-TC; 80061-TC; 80076-TC; 81001; 82570-TC; 82728-TC; 83540-TC; 83605-TC; 83690-TC; 83735-TC; 83880; 84100-TC; 84300-TC; 84439-TC; 84443-TC; 84484-TC; 85025-TC; 85730-TC; 87040-TC; 87086-TC; 93307-TC; 93970-TC; 93971-TC; 97110-TC; 97116-TC; 97530-TC; A4223; C9803; G0378; J0360; J1650; J1940; J2270; J2405; J2916; J2930; J7030; J7050